=== PATIENT | male | born 2000 | race African-American/Black ===

== ENCOUNTER 2024-09-06 13:49 | Emergency (ER) | payer OTHER ==
[~2024-09-06] VITALS: BP 116/78; TEMP 36.7; O2SAT 98; Ht 177.8 cm; Wt 63.0 kg
[2024-09-06 13:52] VITALS: PULSE 92; RESP 12; O2SAT 100
== END 2024-09-06 15:30 | disposition left against medical advice (07) ==
LOC: ER 13:49
DX: M79.645 Pain in left finger(s) (principal); Z53.21 Procedure and treatment not carried out due to patient leaving prior to being seen by health care provider